=== PATIENT | male | born 1950 | race Caucasian/White ===

== ENCOUNTER 2023-08-17 09:41 | Outpatient (CLI) | payer MEDICARE, OTHER ==
[2023-08-17] MEDS ORDERED: Iopamidol 300 61% 100 ML VIAL FS ONE (09:48)
== END 2023-08-17 09:42 | disposition home or self-care (01) ==
LOC: CSHCT 09:41
PROVIDERS: ATTEND Internal Medicine Hematology & Oncology
DX: C25.2 Malignant neoplasm of tail of pancreas (principal); Z98.890 Other specified postprocedural states; R19.09 Other intra-abdominal and pelvic swelling, mass and lump; N20.2 Calculus of kidney with calculus of ureter
CPT/HCPCS: 71260; 74177